=== PATIENT | female | born 1950 | race Two or more races ===

== ENCOUNTER 2020-02-28 08:00 | Inpatient (IN) | payer OTHER ==
[2020-02-23 14:47] VITALS: BMI 36.2
[2020-02-28] MEDS ORDERED: BUPIVACAINE LIPOSOME/PF (EXPAREL) 266 MG/20 ML VIAL ONE (12:36)
[2020-02-28] MEDS ORDERED: SODIUM CHLORIDE 0.9% P/F 10 ML VIAL IJ ONE (12:36)
[2020-02-28] MEDS ORDERED: MIDAZOLAM HCL 2 MG/2 ML SINGLE DOSE VIAL ONE ×3 (12:36→15:40)
[2020-02-28] MEDS ORDERED: ONDANSETRON 4 MG/2 ML VIAL ONE (14:27)
[2020-02-28] MEDS ORDERED: DEXAMETHASONE SOD PHOSPHATE 4 MG/1 ML VIAL ONE (14:27)
[2020-02-28] MEDS ORDERED: TRANEXAMIC ACID 1000 MG/10 ML VIAL ONE ×2 (14:27→16:50)
[2020-02-28] MEDS ORDERED: ceFAZolin SODIUM 1 GM VIAL ONE ×2 (14:27→16:50)
[2020-02-28] MEDS ORDERED: VANCOMYCIN 1,000 MG VIAL (RESTRICTED TO ID ONLY) ONE (14:27)
[2020-02-28] MEDS ORDERED: ePHEDrine SULFATE 50 MG/1 ML AMPULE ONE (14:39)
[2020-02-28] MEDS ORDERED: BENZOIN/ALOE VERA/STORAX/TOLU 58 ML BOTTLE ONE (16:25)
[2020-02-28] MEDS ORDERED: ONDANSETRON 4 MG/2 ML VIAL IVPUSH PRN ×2 (16:37→17:10)
[2020-02-28] MEDS ORDERED: oxyCODONE HCL 5 MG TABLET PO PRN (16:37)
[2020-02-28] MEDS ORDERED: LACTATED RINGERS SOLUTION 1,000 ML IV SCH ×2 (16:45→17:15)
[2020-02-28] MEDS ORDERED: MAGNESIUM HYDROX 2400MG/30ML ORAL SUSPENSION 30 ML CUP PO PRN (17:10)
[2020-02-28] MEDS ORDERED: MAG HYDROX/AL HYDROX/SIMETH 30 ML UNIT-DOSE CUP PO PRN (17:10)
[2020-02-28] MEDS: ACETAMINOPHEN 1000 MG/100 ML VIAL (NON FORMULARY) IVPB ONE ×2 (17:30→22:02)
[2020-02-28] MEDS: SENNOSIDES/DOCUSATE COMBO (SENNA PLUS) TABLET (UD) PO SCH (21:59)
[2020-02-28] MEDS: ASPIRIN COATED 81 MG TABLET.EC PO SCH (21:59)
[2020-02-28] MEDS: ACETAMINOPHEN 325 MG TABLET (FP) PO SCH (21:59)
[2020-02-28] MEDS: ATORVASTATIN CA 20 MG TABLET (FP) PO SCH (22:01)
[2020-02-28] MEDS: oxyCODONE HCL 10 MG SUSTAINED ACTING TABLET PO SCH (22:01)
[2020-02-28] MEDS: DONEPEZIL HCL 10 MG TABLET (FP) PO SCH (22:01)
[2020-02-28] MEDS: CEFAZOLIN 2 GM/D5W 2 GM/50 ML ML IVPB SCH (22:20)
[2020-02-29] MEDS: ACETAMINOPHEN 325 MG TABLET (FP) PO SCH ×4 (03:12→21:33)
[2020-02-29] MEDS: oxyCODONE HCL 5 MG TABLET PO PRN (03:12)
[2020-02-29] MEDS: CEFAZOLIN 2 GM/D5W 2 GM/50 ML ML IVPB SCH ×3 (06:15→23:57)
[2020-02-29] MEDS: LEVOTHYROXINE NA 125 MCG TABLET (FP) PO SCH (06:20)
[2020-02-29 08:21] LABS: HEMATOCRIT 34.4 % (32.4-45.2); HEMOGLOBIN 11.1 GM/dl (10.7-15.3); MCH 27.9 pg (25.7-33.7); MCHC 32.1 g/dl (32.0-36.0); MEAN CELL VOLUME 86.8 fl (80-96); MEAN PLT VOLUME 8.8 fl (7.5-11.1); PLATELET COUNT 167 K/MM3 (134-434); RBC 3.96 M/mm3 (3.60-5.2); RDW 11.8 % (11.6-15.6); WHITE BLOOD COUNT 5.4 K/mm3 (4.0-10.8)
[2020-02-29 08:28] LABS: CALCIUM 8.6 mg/dl (8.5-10); CREATININE 0.7 mg/dl (0.55-1.3); POTASSIUM 3.5 mmol/L (3.5-5.1)
[2020-02-29] MEDS: ASPIRIN COATED 81 MG TABLET.EC PO SCH ×2 (09:13→21:33)
[2020-02-29] MEDS: CELECOXIB 200 MG CAPSULE PO SCH (09:13)
[2020-02-29] MEDS: SENNOSIDES/DOCUSATE COMBO (SENNA PLUS) TABLET (UD) PO SCH ×2 (09:16→21:33)
[2020-02-29] MEDS: PANTOPRAZOLE 40 MG TABLET PO SCH (09:16)
[2020-02-29] MEDS: LOSARTAN POTASSIUM 25 MG TABLET PO SCH (09:16)
[2020-02-29] MEDS: oxyCODONE HCL 10 MG SUSTAINED ACTING TABLET PO SCH ×2 (09:17→21:34)
[2020-02-29] MEDS ORDERED: ESCITALOPRAM OXALATE 10 MG TABLET PO SCH (16:30)
[2020-02-29] MEDS: INSULIN SLIDING SCALE (NOVOLOG) 1 VIAL SQ SCH ×2 (18:40→21:47)
[2020-02-29] MEDS: ATORVASTATIN CA 20 MG TABLET (FP) PO SCH (21:33)
[2020-02-29] MEDS: DONEPEZIL HCL 10 MG TABLET (FP) PO SCH (21:33)
[2020-03-01] MEDS: ACETAMINOPHEN 325 MG TABLET (FP) PO SCH ×2 (05:57→10:15)
[2020-03-01] MEDS: oxyCODONE HCL 5 MG TABLET PO PRN (06:11)
[2020-03-01] MEDS: INSULIN SLIDING SCALE (NOVOLOG) 1 VIAL SQ SCH (06:44)
[2020-03-01] MEDS: LEVOTHYROXINE NA 125 MCG TABLET (FP) PO SCH (06:44)
[2020-03-01 08:15] LABS: HEMATOCRIT 31.8 % (32.4-45.2); HEMOGLOBIN 10.5 GM/dl (10.7-15.3); MCH 28.9 pg (25.7-33.7); MEAN CELL VOLUME 87.6 fl (80-96); PLATELET COUNT 153 K/MM3 (134-434); RBC 3.63 M/mm3 (3.60-5.2); RDW 12.2 % (11.6-15.6); WHITE BLOOD COUNT 6.3 K/mm3 (4.0-10.8)
[2020-03-01] MEDS: PANTOPRAZOLE 40 MG TABLET PO SCH (10:13)
[2020-03-01] MEDS: CELECOXIB 200 MG CAPSULE PO SCH (10:13)
[2020-03-01] MEDS: LOSARTAN POTASSIUM 25 MG TABLET PO SCH (10:13)
[2020-03-01] MEDS: SENNOSIDES/DOCUSATE COMBO (SENNA PLUS) TABLET (UD) PO SCH (10:14)
[2020-03-01] MEDS: oxyCODONE HCL 10 MG SUSTAINED ACTING TABLET PO SCH (10:14)
[2020-03-01] MEDS: ASPIRIN COATED 81 MG TABLET.EC PO SCH (10:15)
[2020-03-01 14:01] VITALS: BP 113/46; PULSE 65; TEMP 98.3
== END 2020-03-01 16:50 | disposition home or self-care (01) | DRG 470 ==
LOC: FM/S 09:42
PROVIDERS: ADMIT Orthopaedic Surgery Orthopaedic Surgery of the Spine; ATTEND Orthopaedic Surgery Orthopaedic Surgery of the Spine
PROC: 0SRC0J9 Replacement of Right Knee Joint with Synthetic Substitute, Cemented, Open Approach (ICD-10-PCS; principal; 2020-02-28 14:59)
DX: M17.11 Unilateral primary osteoarthritis, right knee (principal); E03.9 Hypothyroidism, unspecified; I10 Essential (primary) hypertension; E11.9 Type 2 diabetes mellitus without complications; F03.90 Unspecified dementia, unspecified severity, without behavioral disturbance, psychotic disturbance, mood disturbance, and anxiety
CPT/HCPCS: 36415; 73560-TC-RT-FY; 80048; 82962; 85027; 88304-TC; 88305-TC; 88311-TC; 94760; 97010-GP; 97116-GP; 97163-GP; J0131

== ENCOUNTER 2021-08-27 06:00 | Inpatient (IN) | payer OTHER ==
[2021-08-22 19:13] VITALS: BMI 36.2
[2021-08-27] MEDS ORDERED: MIDAZOLAM HCL 2 MG/2 ML SINGLE DOSE VIAL ONE (07:44)
[2021-08-27] MEDS ORDERED: BUPIVACAINE LIPOSOME/PF (EXPAREL) 266 MG/20 ML VIAL ONE (07:44)
[2021-08-27] MEDS ORDERED: BUPIVACAINE HCL/PF 0.5% (5MG/ML) 10 ML VIAL ONE (07:44)
[2021-08-27] MEDS ORDERED: TRANEXAMIC ACID 1000 MG/10 ML VIAL ONE ×2 (08:20→10:33)
[2021-08-27] MEDS ORDERED: VANCOMYCIN 1,000 MG VIAL (RESTRICTED TO ID ONLY) ONE (08:20)
[2021-08-27] MEDS ORDERED: ceFAZolin SODIUM 1 GM VIAL ONE ×2 (08:20→11:09)
[2021-08-27] MEDS ORDERED: DEXAMETHASONE SOD PHOSPHATE 4 MG/1 ML VIAL ONE (08:23)
[2021-08-27] MEDS ORDERED: ONDANSETRON 4 MG/2 ML VIAL ONE (08:23)
[2021-08-27] MEDS ORDERED: PROPOFOL 20 ML ONE ×3 (08:25→10:23)
[2021-08-27] MEDS ORDERED: MAG HYDROX/AL HYDROX/SIMETH 30 ML UNIT-DOSE CUP PO PRN (11:31)
[2021-08-27] MEDS ORDERED: ONDANSETRON 4 MG/2 ML VIAL IVPUSH PRN ×2 (11:31→12:15)
[2021-08-27] MEDS ORDERED: MAGNESIUM HYDROX 2400MG/30ML ORAL SUSPENSION 30 ML CUP PO PRN (11:31)
[2021-08-27] MEDS ORDERED: KETOROLAC TROMETHAMINE 30 MG/1 ML VIAL ONE (11:33)
[2021-08-27] MEDS ORDERED: ACETAMINOPHEN INJECTION 100 ML IVPB ONE (11:34)
[2021-08-27] MEDS: KETOROLAC TROMETHAMINE 30 MG/1 ML VIAL IVPUSH SCH ×3 (11:35→19:52)
[2021-08-27] MEDS: ACETAMINOPHEN 1000 MG/100 ML BAG IVPB ONE ×2 (11:40→18:05)
[2021-08-27] MEDS: LACTATED RINGERS SOLUTION 1,000 ML IV SCH ×3 (13:06→17:44)
[2021-08-27] MEDS ORDERED: CEFAZOLIN SODIUM 2 GM VIAL ONE ×2 (16:10→21:32)
[2021-08-27] MEDS ORDERED: DEXTROSE 5%-WATER 100 ML IVPB ONE ×2 (16:10→21:32)
[2021-08-27] MEDS: CEFAZOLIN SODIUM 2 GM in DEXTROSE 5%-WATER 100 ML IVPB SCH ×2 (16:15→22:16)
[2021-08-27] MEDS: oxyCODONE HCL 5 MG TABLET PO PRN ×2 (16:16→22:16)
[2021-08-27] MEDS: ESCITALOPRAM OXALATE 10 MG TABLET PO SCH (16:16)
[2021-08-27] MEDS ORDERED: KETOROLAC TROMETHAMINE 30 MG/1 ML VIAL IVPUSH ONE (16:28)
[2021-08-27] MEDS: ASPIRIN COATED 81 MG TABLET.EC PO SCH (22:14)
[2021-08-27] MEDS: ATORVASTATIN CA 20 MG TABLET (FP) PO SCH (22:14)
[2021-08-27] MEDS: oxyCODONE HCL 10 MG SUSTAINED ACTING TABLET PO SCH (22:15)
[2021-08-27] MEDS: DONEPEZIL HCL 10 MG TABLET (FP) PO SCH (22:15)
[2021-08-27] MEDS: SENNOSIDES/DOCUSATE COMBO (SENNA PLUS) TABLET (UD) PO SCH (22:16)
[2021-08-28] MEDS ORDERED: CEFAZOLIN SODIUM 2 GM VIAL ONE (05:52)
[2021-08-28] MEDS ORDERED: DEXTROSE 5%-WATER 100 ML IVPB ONE (05:52)
[2021-08-28] MEDS: CEFAZOLIN SODIUM 2 GM in DEXTROSE 5%-WATER 100 ML IVPB SCH (05:58)
[2021-08-28] MEDS: LEVOTHYROXINE NA 125 MCG TABLET (FP) PO SCH (05:59)
[2021-08-28] MEDS ORDERED: LIRAGLUTIDE 0.6 MG/0.1 ML PEN.INJCTR SQ SCH (07:00)
[2021-08-28 08:26] LABS: CALCIUM 8.8 mg/dl (8.5-10); CREATININE 0.8 mg/dl (0.55-1.3)
[2021-08-28 08:32] LABS: HEMATOCRIT 30.1 % (32.4-45.2); HEMOGLOBIN 10.4 G/dL (10.7-15.3); MCH 29.8 pg (25.7-33.7); MCHC 34.7 g/dl (32.0-36.0); MEAN PLT VOLUME 9.3 fl (7.5-11.1); PLATELET COUNT 193.6 10^3/uL (134-434); RDW 14.2 % (11.6-15.6); WHITE BLOOD COUNT 5.7 10^3/uL (4.0-10.8)
[2021-08-28] MEDS: oxyCODONE HCL 10 MG SUSTAINED ACTING TABLET PO SCH ×2 (09:08→22:03)
[2021-08-28] MEDS: CELECOXIB 200 MG CAPSULE PO SCH (09:08)
[2021-08-28] MEDS: SENNOSIDES/DOCUSATE COMBO (SENNA PLUS) TABLET (UD) PO SCH ×2 (09:08→22:02)
[2021-08-28] MEDS: PANTOPRAZOLE 40 MG TABLET PO SCH (09:08)
[2021-08-28] MEDS: ASPIRIN COATED 81 MG TABLET.EC PO SCH ×2 (09:08→22:03)
[2021-08-28] MEDS: LOSARTAN POTASSIUM 25 MG TABLET PO SCH (09:10)
[2021-08-28] MEDS: LACTATED RINGERS SOLUTION 1,000 ML IV SCH (13:21)
[2021-08-28] MEDS: oxyCODONE HCL 5 MG TABLET PO PRN ×2 (13:22→22:01)
[2021-08-28] MEDS: ESCITALOPRAM OXALATE 10 MG TABLET PO SCH (16:35)
[2021-08-28] MEDS ORDERED: MELATONIN 5 MG TABLETS PO ONE (21:35)
[2021-08-28] MEDS: DONEPEZIL HCL 10 MG TABLET (FP) PO SCH (22:03)
[2021-08-28] MEDS: ATORVASTATIN CA 20 MG TABLET (FP) PO SCH (22:03)
[2021-08-29] MEDS: LEVOTHYROXINE NA 125 MCG TABLET (FP) PO SCH (07:47)
[2021-08-29 08:17] LABS: HEMATOCRIT 28.6 % (32.4-45.2); HEMOGLOBIN 9.7 G/dL (10.7-15.3); MCHC 33.9 g/dl (32.0-36.0); MEAN CELL VOLUME 85.7 fl (80-96); MEAN PLT VOLUME 8.7 fl (7.5-11.1); PLATELET COUNT 163.1 10^3/uL (134-434); RBC 3.34 10^6/uL (3.60-5.2); RDW 14.3 % (11.6-15.6); WHITE BLOOD COUNT 4.6 10^3/uL (4.0-10.8)
[2021-08-29] MEDS: SENNOSIDES/DOCUSATE COMBO (SENNA PLUS) TABLET (UD) PO SCH (09:54)
[2021-08-29] MEDS: PANTOPRAZOLE 40 MG TABLET PO SCH (09:54)
[2021-08-29] MEDS: LOSARTAN POTASSIUM 25 MG TABLET PO SCH (09:54)
[2021-08-29] MEDS: CELECOXIB 200 MG CAPSULE PO SCH (09:54)
[2021-08-29] MEDS: ASPIRIN COATED 81 MG TABLET.EC PO SCH (09:54)
[2021-08-29] MEDS: oxyCODONE HCL 10 MG SUSTAINED ACTING TABLET PO SCH (09:58)
[2021-08-29] MEDS: LACTATED RINGERS SOLUTION 1,000 ML IV SCH (12:20)
[2021-08-29 14:07] VITALS: BP 100/56; PULSE 71; RESP 20; TEMP 99
[2021-08-29] MEDS: ESCITALOPRAM OXALATE 10 MG TABLET PO SCH (16:47)
== END 2021-08-29 17:30 | disposition home or self-care (01) | DRG 470 ==
LOC: FM/S 06:00 → EDSTATUS 08:00 → FM/S 12:28
PROVIDERS: ADMIT Orthopaedic Surgery Orthopaedic Surgery of the Spine; ATTEND Orthopaedic Surgery Orthopaedic Surgery of the Spine
PROC: 0SRD0J9 Replacement of Left Knee Joint with Synthetic Substitute, Cemented, Open Approach (ICD-10-PCS; principal; 2021-08-27 08:51)
DX: M17.12 Unilateral primary osteoarthritis, left knee (principal); E03.9 Hypothyroidism, unspecified; E11.9 Type 2 diabetes mellitus without complications; E78.5 Hyperlipidemia, unspecified; F03.90 Unspecified dementia, unspecified severity, without behavioral disturbance, psychotic disturbance, mood disturbance, and anxiety; G89.29 Other chronic pain; Z85.850 Personal history of malignant neoplasm of thyroid; E66.9 Obesity, unspecified; Z68.36 Body mass index [BMI] 36.0-36.9, adult
CPT/HCPCS: 36415; 73560-TC-LT-FY; 80048; 82962; 85027; 88305-TC; 88311-TC; 94760; 97010-GP; 97116-GP; 97162-GP